=== PATIENT | male | born 1995 | race Caucasian/White ===

== ENCOUNTER 2020-12-10 16:34 | Emergency (ER) | payer OTHER, SELFPAY ==
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
[2020-12-10 16:53] VITALS: BP 125/85; PULSE 77; RESP 16; TEMP 37.2; O2SAT 100
[2020-12-10] MEDS: KETOROLAC (*BKC) 60 MG/2 ML VIAL IM (17:07)
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
[2020-12-10 18:02] VITALS: BP 119/74; PULSE 71; RESP 16; O2SAT 99
== END 2020-12-10 17:53 | disposition home or self-care (01) ==
PROVIDERS: Emergency Provider Emergency Medicine; PCP Family Medicine
DX: S16.1XXA Strain of muscle, fascia and tendon at neck level, initial encounter (principal); V89.2XXA Person injured in unspecified motor-vehicle accident, traffic, initial encounter
CPT/HCPCS: 70450; 72125; 96372; 99283; 99284; J1885